=== PATIENT | female | born 1965 | race American Indian/Alaskan Native ===

== ENCOUNTER 2021-10-19 09:59 | Emergency (ER) | payer SELFPAY ==
--- NOTE | 2021-10-19 11:58 | Emergency Department Report ---
ED Chest Pain HPI - General Chief Complaint: Chest Pain Stated Complaint: CHEST PAIN Source: patient Mode of arrival: Ambulatory Limitations: No Limitations - History of Present Illness Initial Comments: 56-year-old female presents to the ED complaining of chest pain x6 days . Sree haley has a history of diabetes, hyperlipidemia, hypertension. Patient came to the hospital via EMS with her and stated that she would like to have a "check up" after being told that she cannot stay with her due to COVID protocol. She states she did not have any chest pain at present time but since she is at the hospital would like to be evaluated for chest pain that has been i ntermittently for the last 6-day. Patient denies any shortness of breath ,fever ,chills ,nausea or vomiting. Patient is alert and oriented x4. No acute distress noted .No ill appearance noted. Onset/Timin -: days(s) Severity scale (0 -10): 0 Consistency: now resolved Improves With: nothing Other Symptoms: denies: cough, fever, syncope Treatments Prior to Arrival: none - Related Data Home Medications Medication Instructions Recorded Confirmed Last Taken No Known Home Medications [No 10/19/21 10/19/21 Unknown Reported Home Medications] Allergies Allergy/AdvReac Type Severity Reaction Status Date / Time No Known Allergies Allergy Verified 10/19/21 11:27 Heart Score - HEART Score History: Slightly suspicious EKG: Normal Age: 45-65 Risk factors: 1-2 risk factors Troponin: < normal limit HEART Score: 2 - EKG Read Time Time EKG Completed: 10:35 EKG Read Time: 10:45 ED Review of Systems ROS: Stated complaint: CHEST PAIN Other details as noted in HPI Constitutional: denies: chills, fever Eyes: denies: eye pain, eye discharge, vision change ENT: denies: ear pain, throat pain Respiratory: denies: cough, shortness of breath, wheezing Cardiovascular: denies: chest pain, palpitations Endocrine: no symptoms reported Gastrointestinal: denies: abdominal pain, nausea, diarrhea Genitourinary: denies: urgency, dysuria, discharge Musculoskeletal: denies: back pain, joint swelling, arthralgia Skin: denies: rash, lesions Neurological: denies: headache, weakness, paresthesias Psychiatric: denies: anxiety, depression Hematological/Lymphatic: denies: easy bleeding, easy bruising ED Past Medical Hx - Past Medical History Previous Medical History?: Yes Hx Diabetes: Yes Additional medical history: high cholesterol - Surgical History Past Surgical History?: No - Medications Home Medications: Home Medications Medication Instructions Recorded Confirmed Last Taken Type No Known Home Medications [No 10/19/21 10/19/21 Unknown History Reported Home Medications] ED Physical Exam - General Limitations: No Limitations General appearance: alert, in no apparent distress - Head Head exam: Present: atraumatic, normocephalic - Eye Eye exam: Present: normal appearance - ENT ENT exam: Present: mucous membranes moist - Neck Neck exam: Present: normal inspection - Respiratory Respiratory exam: Present: normal lung sounds bilaterally. Absent: respiratory distress - Cardiovascular Cardiovascular Exam: Present: regular rate, normal rhythm. Absent: systolic murmur, diastolic murmur, rubs, gallop - GI/Abdominal GI/Abdominal exam: Present: soft, normal bowel sounds - Extremities Exam Extremities exam: Present: normal inspection - Back Exam Back exam: Present: normal inspection - Neurological Exam Neurological exam: Present: alert, oriented X3 - Psychiatric Psychiatric exam: Present: normal affect, normal mood - Skin Skin exam: Present: warm, dry, intact, normal color. Absent: rash ED Course Vital Signs 10/19/21 10/19/21 10/19/21 10:30 11:26 15:11 Temperature 98.4 F Pulse Rate 87 82 Respiratory 20 18 Rate Blood Pressure 154/88 155/90 [Right] O2 Sat by Pulse 98 99 98 Oximetry ED Medical Decision Making - Lab Data Result diagrams: 10/19/21 13:20 10/19/21 13:20 - EKG Data Interpretation: no acute changes 10/19/21 12:02 Normal sinus rhythm Right 84 no STEMI - Medical Decision Making 56-year-old female presents to the ED complaining of chest pain x6 days . Patient has a history of diabetes, hyperlipidemia, hypertension. Patient came to the hospital via EMS with her and stated that she would like to have a "check up" after being told that she cannot stay with her due to COVID protocol. She states she did not have any chest pain at present time but since she is at the hospital would like to be evaluated for chest pain that has been intermittently for the last 6-day. Patient denies any shortness of breath ,fever ,chills ,nausea or vomiting. Patient is alert and oriented x4. No acute distress noted .No ill appearance noted. Rechecked the patient is resting quietly quietly and comfortable and feeling better. I discussed the results of diagnostic study, my clinical impression and the plan for further treatment with the patient. Patient agrees with plan and discharge at this present time. All question addressed. I have given the patient instruction regarding a diagnosis ,expectation ,follow- up and return precaution. I explained to the patient that emergent condition may arise and to return to the ED for new worsen and any new persisting condition. I have explained the importance of following up with the primary care physician or referral physician listed below has instructed. The patient verbalized understanding of discharge instruction. Critical care attestation.: If time is entered above; I have spent that time in minutes in the direct care o f this critically ill patient, excluding procedure time. ED Disposition Clinical Impression: Atypical chest pain Disposition: HOME / SELF CARE / HOMELESS Is pt being admited?: No Does the pt Need Aspirin: No Condition: Stable Instructions: Nonspecific Chest Pain, Adult Additional Instructions: Return to ED for any worsening symptoms Follow-up with primary care doctor as needed Referrals: TENNILLE LEIJA MD [Primary Care Provider] - 3-5 Days GORAN VASQUEZ MD [Staff Physician] - 3-5 Days
--- NOTE | 2021-10-19 12:41 | XRay Report ---
CHEST 2 VIEWS INDICATION / CLINICAL INFORMATION: Chest Pain. COMPARISON: None available. FINDINGS: SUPPORT DEVICES: None. HEART / MEDIASTINUM: No significant abnormality. LUNGS / PLEURA: No significant pulmonary or pleural abnormality. No pneumothorax. ADDITIONAL FINDINGS: No significant additional findings. IMPRESSION: 1. No acute findings. Signer Name: Serg Torres MD Signed: 10/19/2021 12:37 PM Workstation Name: [id number]
[2021-10-19 13:43] LABS: Basophils # (Auto) 0.1 K/mm3 (0.0-0.1); Basophils % (Auto) 0.7 % (0.0-1.8); Eosinophils # (Auto) 0.2 K/mm3 (0.0-0.4); Eosinophils % (Auto) 2.1 % (0.0-4.3); Hematocrit 42.2 % (30.3-42.9); Hemoglobin 13.4 gm/dl (10.1-14.3); Lymphocytes # (Auto) 2.6 K/mm3 (1.2-5.4); Lymphocytes % (Auto) 32.9 % (13.4-35.0); Mean Corpuscular HGB Conc 32 % (30-34); Mean Corpuscular Volume 80 fl (79-97); Monocytes # (Auto) 0.5 K/mm3 (0.0-0.8); Platelet Count 261 K/mm3 (140-440); Red Cell Distribution Width 14.7 % (13.2-15.2)
[2021-10-19 13:59] LABS: Blood Urea Nitrogen 13 mg/dL (7-17); Calcium 9.5 mg/dL (8.4-10.2); Hemolysis Index 72
[2021-10-19 14:17] LABS: BUN/Creatinine Ratio 19
[2021-10-19 15:12] VITALS: BP 155/90
--- NOTE | 2021-10-20 10:00 | Electrocardiograph Report ---
[facility] Test Date: 2021-10-19 Test Time: 10:35:47 Pat Name: TEREZA HAYDEN Department: Room: Gender: F [employer]: TONO : 1965 Requested By: ED DOC Order Number: [id number] Reading MD: Ronnie Wheeler Measurements Intervals [place] Rate: 84 P: 18 TX: 148 QRS: -19 QRSD: 88 T: -63 QT: 366 QTc: 434 Interpretive Statements Sinus rhythm Probable left atrial enlargement T wave abnormality, consider lateral ischemia Inferior infarct, old No previous ECG available for comparison Electronically Signed On 10-20-2021 10:00:28 EST by Ronnie Wheeler
== END 2021-10-21 19:11 | disposition home or self-care (01) ==
LOC: ED 09:59
DX: R07.89 Other chest pain (principal); E11.9 Type 2 diabetes mellitus without complications; E78.00 Pure hypercholesterolemia, unspecified; Z79.899 Other long term (current) drug therapy
CPT/HCPCS: 36415; 71046; 80048; 83690; 84484; 85025; 93005; 99284